=== PATIENT | female | born 1935 ===

== ENCOUNTER → 2017-06-16 | Outpatient (CLI) | payer MEDICARE, OTHER ==
--- NOTE | 2017-06-16 16:20 | RADIOLOGY IMAGING REPORT ---
FACILITY: [facility] [place] PATIENT NAME: Shikha Hester : 1935 MR: [id number] V: [id number] EXAM DATE: ORDERING PHYSICIAN: KYLEE ARTHUR TECHNOLOGIST: Location: [facility] [place] Patient: Shikha Hester : 1935 Visit/Account:[id number] Date of Sevice: 06/16/2017 ABDOMEN/PELVIS W/O CONTRAST HISTORY: Cystitis, hematuria TECHNIQUE: Axial images acquired through the abdomen/pelvis. Coronal and sagittal reformatting also performed. No IV contrast administered. Dose Lowering Technique One of the following dose optimization techniques was utilized in the performance of this exam: Autom ated exposure control; adjustment of the mA and/or kV according to the patient's size; or use of an i terative reconstruction technique. Specific details can be referenced in the facility's radiology C T exam operational policy. COMPARISON: October 01, 2015 and January 16, 2013 FINDINGS: Visualized lung bases: There is an 8 x 5 mm noncalcified nodule lateral aspect right lower lobe best seen on image one of series 2 this is partially seen on the prior CT from January 16, 2013. . The previously noted 5 x 4 mm noncalcified nodule in the left lower lobe appears stable There is line ar scarring in the lung bases Hepatobiliary: Postsurgical changes from a cholecystectomy with a small amount of pneumobilia again noted although has partially decreased. Peripheral biliary ductal dilatation and the right and left lobes of the liver appears similar to the prior study Spleen: 1.5 cm hypoattenuating lesion within the medial spleen appears stable Adrenals: Negative. Pancreas: Negative. Kidneys ureters and bladder: There are postsurgical changes from a left nephrectomy. Nonobstructing right renal calculi again seen the largest is in the lower pole measuring 1.5 x 0.9 x 0.9 cm appearin g similar to the prior study. Genitalia: Calcified uterine fibroids again noted GI: Negative. Vessels/spaces/nodes: Moderate vascular calcifications Bones/soft tissues: Moderate spondylotic changes of the lumbar spine again noted. Chronic compressi on deformity of L2 that appears stable. Scattered sclerotic densities also noted throughout the thor acal lumbar spine appear stable. Moderate degenerative changes of both hip joints again noted and la rge sclerotic lesion in the left iliac bone also remains stable Additional findings: None pertinent. IMPRESSION: Post surgical changes from a left nephrectomy Nonobstructing right renal calculi again noted Additional chronic findings as described Report Dictated By: Samantha Haider MD at 06/16/2017 1:40 PM Report E-Signed By: Samantha Haider MD at 06/16/2017 4:17 PM WSN:[email or web address]
== END ==
LOC: CT 07:17
DX: R91.8 Other nonspecific abnormal finding of lung field (principal); Z90.49 Acquired absence of other specified parts of digestive tract; D73.89 Other diseases of spleen; Z90.5 Acquired absence of kidney; N20.0 Calculus of kidney; D25.9 Leiomyoma of uterus, unspecified; M47.896 Other spondylosis, lumbar region
CPT/HCPCS: 74176

== ENCOUNTER → 2017-07-08 | Outpatient (CLI) | payer MEDICARE, OTHER ==
--- NOTE | 2017-07-09 08:41 | RADIOLOGY IMAGING REPORT ---
[place] [facility] [place] GUERLINE DONNELLY : [id number] MR: [id number] V: [id number] EXAM DATE: [id number] ORDERING PHYSICIAN: CASSY ABURTO TECHNOLOGIST: Grace Bentley PROCEDURE:BILATERAL DIGITAL SCREENING MAMMOGRAM WITH CAD ASSISTED INTERPRETATION & 3D TOMOSYNTHESIS COMPARISON:None. By history the patient's previous mammograms are greater than 15 yrs old & are not Obtainable. INDICATIONS:screening FINDINGS: Moderately heterogeneous fibroglandular tissue is seen throughout the breasts. There are coarse benign appearing calcifications noted bilaterally. There is no evidence of malignant appearing mass, malignant appearing calcification or other secondary sign of malignancy in either breast. DIAGNOSTIC CATEGORY 2--BENIGN FINDING. RECOMMENDATIONS: ROUTINE MAMMOGRAM AND CLINICAL EVALUATION. IMPRESSION: BIRADS 2: Benign finding. No significant abnormality is seen. Dictated by: Samantha Haider M.D. on 07/08/2017 at 16:51 Transcribed by: DALJIT on 07/09/2017 at 7:09 Approved by: Samantha Haider M.D. on 07/09/2017 at 8:40 [facility]
== END ==
LOC: MAMO 01:00
PROVIDERS: ATTEND Physician Assistant
DX: Z12.31 Encounter for screening mammogram for malignant neoplasm of breast (principal); R92.1 Mammographic calcification found on diagnostic imaging of breast
CPT/HCPCS: 77063; 77067

== ENCOUNTER 2018-10-11 14:45 | Emergency (ER) | payer MEDICARE, OTHER ==
--- NOTE | 2018-10-11 14:58 | ER Report ---
History and Physical Time Seen By MD: 14:55 HPI/ROS CHIEF COMPLAINT: Gen. malaise, bradycardia HISTORY OF PRESENT ILLNESS: Patient is an 83-year-old female here with complaints of general malaise since Wednesday at which time she applied her pulse oximeter and found that she was bradycardic in the 30s. Patient was evaluated by PCP and was found to be in sinus bradycardia with a rate of 34 which was confirmed upon arrival in the emergency department. Patient was transported via EMS. Patient currently admits to shortness breath, denies chest pain, fevers or chills, abdominal pain. REVIEW OF SYSTEMS: Constitutional: No fever, no chills. Eyes: No discharge. ENT: No sore throat. Cardiovascular: No chest pain, no palpitations.+ Slow heart rate Respiratory: No cough, + shortness of breath. Gastrointestinal: No abdominal pain, no vomiting. Genitourinary: No hematuria. Musculoskeletal: No back pain. Skin: No rashes. Neurological: No headache. Allergies: Coded Allergies: No Known Drug Allergies (Unverified , 10/11/18) Home Meds No Active Prescriptions or Reported Meds Hx Smoking: Yes Exposure to Second Hand Smoke?: No Hx Substance Use Disorder: No Hx Alcohol Use: No Constitutional Vital Sign - Last 24 Hours 10/11/18 10/11/18 14:52 15:02 Temp 98.2 Pulse 40 Resp 12 B/P (MAP) 178/71 Pulse Ox 89 O2 Delivery Room Air O2 Flow Rate 1.0 Physical Exam General Appearance: The patient is alert, has no immediate need for airway protection and no signs of toxicity. No acute distress Eyes: Pupils equal and round no pallor or injection. ENT, Mouth: Mucous membranes are moist. Respiratory: There are no retractions, lungs are clear to auscultation. Cardiovascular: Sinus bradycardia Gastrointestinal: Abdomen is soft and non tender, no masses, bowel sounds normal. Neurological: Alert and oriented, no cranial nerve defects, neurovascularly intact Skin: Warm and dry, no rashes. Musculoskeletal: Neck is supple non tender. Extremities are nontender, nonswollen and have full range of motion. DIFFERENTIAL DIAGNOSIS: After history and physical exam differential diagnosis was considered for chest pain including but not limited to myocardial ischemia, pericarditis pulmonary embolus, chest wall pain, pleural inflammation and pulmonary infectious causes. Medical Decision Making Data Points Result Diagram: 10/11/18 1450 10/11/18 1450 Laboratory Hematology Test 10/11/18 14:50 White Blood Count 5.8 k/uL (4.5-11.0) Red Blood Count 4.33 M/uL (4.17-5.56) Hemoglobin 13.9 g/dL (12.0-16.0) Hematocrit 41.1 % (34.0-47.0) Mean Corpuscular Volume 94.9 fL (80.0-96.0) Mean Corpuscular Hemoglobin 32.2 pg (26.0-33.0) Mean Corpuscular Hemoglobin Concent 33.9 g/dL (32.0-36.0) Red Cell Distribution Width 14.9 % (11.5-14.5) H Platelet Count 127 K/uL (150-450) L Mean Platelet Volume 10.2 fL (7.2-11.1) Neutrophils (%) (Auto) 73.3 % (39.4-72.5) H Lymphocytes (%) (Auto) 19.0 % (17.6-49.6) Monocytes (%) (Auto) 6.6 % (4.1-12.4) Eosinophils (%) (Auto) 0.4 % (0.4-6.7) Basophils (%) (Auto) 0.7 % (0.3-1.4) Nucleated RBC Relative Count (auto) 0.1 /100WBC Neutrophils # (Auto) 4.3 K/uL (2.0-7.4) Lymphocytes # (Auto) 1.1 K/uL (1.3-3.6) L Monocytes # (Auto) 0.4 K/uL (0.3-1.0) Eosinophils # (Auto) 0.0 K/uL (0.0-0.5) Basophils # (Auto) 0.0 K/uL (0.0-0.1) Nucleated RBC Absolute Count (auto) 0.01 K/uL Chemistry Test 10/11/18 14:50 Sodium Level 141 mmol/L (137-145) Potassium Level 4.0 mmol/L (3.5-5.0) Chloride Level 104 mmol/L (98-107) Carbon Dioxide Level 26 mmol/L (22-31) Blood Urea Nitrogen 24 mg/dl (7-18) Creatinine 1.00 mg/dl (0.52-1.04) Glomerular Filtration Rate Calc 52.8 Random Glucose 93 mg/dl (75-110) Calcium Level 9.7 mg/dl (8.4-10.2) Magnesium Level 2.3 mg/dl (1.7-2.2) Total Bilirubin 0.6 mg/dl (0.2-1.3) Aspartate Amino Transf (AST/SGOT) 160 U/L (0-35) Alanine Aminotransferase (ALT/SGPT) 180 U/L (0-56) Alkaline Phosphatase 103 U/L (0-126) Troponin I < 0.012 ng/ml B-Type Natriuretic Peptide 393 pg/ml (0-100) Total Protein 7.2 g/dl (6.3-8.2) Albumin 4.5 g/dl (3.5-5.0) Lipase 289 U/L (23-300) Coagulation Test 10/11/18 14:50 Prothrombin Time 13.0 seconds (12.0-14.4) Prothromb Time International Ratio 0.98 Activated Partial Thromboplast Time 27 seconds (23-35) EKG/Imaging EKG Interpretation PATIENT NAME: SHIKHA DONNELLY : [id number] MR: [id number] V: [id number] EXAM DATE: ORDERING PHYSICIAN: IVIS GREEN TECHNOLOGIST: Test Reason : Blood Pressure : / mmHG Vent. Rate : 039 BPM Atrial Rate : 039 BPM P-R Int : 230 ms QRS Dur : 136 ms QT Int : 650 ms P-R-T Axes : 064 087 058 degrees QTc Int : 523 ms Marked sinus bradycardia with 1st degree AV block Right bundle branch block Abnormal ECG No previous ECGs available Referred By: Confirmed By: Imaging PATIENT NAME: Shikha Donnelly : 1935 MR: [id number] V: [id number] EXAM DATE: ORDERING PHYSICIAN: IVIS GREEN TECHNOLOGIST: Location: [facility] [place] Patient: Shikha Donnelly : 1935 Visit/Account:[id number] Date of Sevice: 10/11/2018 CT CHEST W/O CONTRAST History: 83-year-old female with chest pain. Technique: Thin axial CT images were obtained through the chest without the injection of intravenous contrast. Coronal and sagittal reformations were then created. One of the following dose optimization techniques was utilized in the performanc e of this exam: Automated exposure control; adjustment of the mA and/or kV according to the patient's size; or use of an iterative reconstruction technique. Specific details can be referenced in the facility's radiology CT exam operational policy. Comparison:None Findings: Lower neck: No lymphadenopathy in the lower neck. Thyroid gland/mediastinum/hilum/lymph nodes: In the left lobe of the thyroid gland inferiorly there is a 2.1 cm dominant nodule. Ultrasound could be performed for further evaluation. Heart and pericardium: The heart size is mildly enlarged. There is calcificatio n of the aortic valve. There is significant three-vessel coronary calcification. Enlargement of the intrahepatic IVC and hepatic veins is suggestive chronic congestive heart failure. Lungs/pleura: In the right lower lobe involving basal segment there is a 8 mm nodule that is partially calcified and likely benign. In a lateral basal segment of the left lower lobe there is millimeter nodule. Its etiology is uncertain. There is linear type density in the right upper lobe involving the anterior segment. In the posterior segment of the right upper lobe there is a small peripheral 5 mm nodule. There is linear scarring in the right middle lobe and lingula. There is no endobronchial lesion. There are areas of lucency in the upper lobes bilaterally suggesting central lobar and paraseptal emphysema. There is no infiltrate or pleural effusion. Bones/soft tissues:Negative Upper abdomen: Air in the biliary system involves mainly the dependent portion. This likely represents change from prior sphincteroplasty or sphincterotomy. Correlation past medical history is recommended. The gallbladder is not seen. On this noncontrast study no masses are noted in the upper abdomen. The left kidney may be surgically absent. A low-density lesion in the spleen is difficult to characterize. IMPRESSION: 1. There are scattered pulmonary nodules in the lungs bilaterally. The largest nodule in the right side is calcified which suggest prior granulomatous disease. The other nodules are difficult to completely characterize. Fleischner society follow-up guidelines are stated below. 2. In the thyroid gland there is a 2.1 cm dominant nodule. Ultrasound could be performed for further evaluation. 3. Findings suggestive chronic congestive heart failure. 4. Status post cholecystectomy. Air in the dependent portion of the biliary system suggesting prior ampulla Vater instrumentation. 5. Findings suggestive central lobar emphysema. FLEISCHNER SOCIETY FOLLOW-UP GUIDELINES FOR NEWLY DETECTED INCIDENTAL NODULES IN PERSONS 35 YEARS OF AGE OR OLDER. If nodule size is 6-8 mm: * Low risk patient ? CT at 3-6 months, then consider CT at 18-24 months if no change. * High risk patient ? CT at 3-6 months, then CT at 18-24 months if no change. LOW RISK PATIENT: Minimal or absent history of tobacco use and of other known risk factors. HIGH RISK PATIENT: Tobacco use, family history of lung cancer, upper pulmonary lobe location of nodule, presence of emphysema, pulmonary fibrosis, older age. Report Dictated By: Noel Noel MD at 10/11/2018 4:22 PM Report E-Signed By: Noel Noel MD at 10/11/2018 4:33 PM WSN:[email or web address] ED Course/Re-evaluation ED Course Patient is an 83-year-old female here with complaints of a slow heart rate, shortness breath since Wednesday. Patient was evaluated at PCP office and sent in for further evaluation. Patient denies prior history of coronary artery disease, arrhythmias. She does not take any medications currently aside from vitamins. Patient does report that in the past she had a history of supraventricular tachycardias, the last of which was approximately 40 years ago. Patient is not c urrently followed by cardiology. Denies prior history of myocardial infarction, cardiac catheterization. CT imaging of the chest was completed and showed scattered nodules likely secondary to recent pneumonia. I discussed the patient with with cardiology at [facility]. Recommended transfer for admission and for evaluation for possible need for pacemaker placement. Patient will be transferred with atropine when necessary. I discussed the patient with the hospitalist that [facility] Dr. ROSAS who accepted the patient. Patient was stable at time of transfer. Decision to Disposition Date: Oct 11, 2018 Decision to Disposition Time: 17:50 Depart Departure Latest Vital Signs Vital Signs Date Time Temp Pulse Resp B/P (MAP) Pulse Ox O2 Delivery O2 Flow Rate FiO2 10/11/18 15:02 1.0 10/11/18 14:52 98.2 40 12 178/71 89 Room Air Impression: Primary Impression: Symptomatic bradycardia Condition: Condition Unchanged Disposition: XFER TO [facility] ([facility]) Referrals: CASSY ABURTO PA-C (PCP) New Scripts No Active Prescriptions or Reported Meds IVIS GREEN DO Oct 11, 2018 14:58
[2018-10-11 15:23] LABS: INR 0.98
--- NOTE | 2018-10-11 15:27 | EKG ---
FACILITY: [facility] PATIENT NAME: GUERLINE DONNELLY : [id number] MR: [id number] V: [id number] EXAM DATE: ORDERING PHYSICIAN: IVIS GREEN TECHNOLOGIST: Test Reason : Blood Pressure : / mmHG Vent. Rate : 039 BPM Atrial Rate : 039 BPM P-R Int : 230 ms QRS Dur : 136 ms QT Int : 650 ms P-R-T Axes : 064 087 058 degrees QTc Int : 523 ms Marked sinus bradycardia with 1st degree AV block and 2nd degree (Mobitz II) AV block with 2:1 conduc tion Right bundle branch block Abnormal ECG No previous ECGs available Confirmed by Pilo Paula ([id number]) on 10/11/2018 8:45:21 PM Referred By: Confirmed By:Pilo Wilson
--- NOTE | 2018-10-11 15:30 | RADIOLOGY IMAGING REPORT ---
FACILITY: [facility] [place] PATIENT NAME: Shikha Hester : 1935 MR: [id number] V: [id number] EXAM DATE: ORDERING PHYSICIAN: IVIS GREEN TECHNOLOGIST: Location: [facility] Patient: Shikha Hester : 1935 Visit/Account:[id number] Date of Sevice: 10/11/2018 2 VIEWS CHEST INDICATION: Bradycardia and chest pain COMPARISON: None available FINDINGS: Cardiomediastinal silhouette: Heart size within normal limits. Prominent apical epicardial fat pad. Lungs: There is no focal infiltrate or lobar consolidation. Soft tissue nodule overlies the left si xth rib without convincing lateral correlate There is no pneumothorax or pleural effusion. Bones and soft tissues: Degenerative changes of the thoracic spine IMPRESSION: 1. Possible lung nodule in the left upper lobe, consider CT. Report Dictated By: Juan Foster MD at 10/11/2018 3:21 PM Report E-Signed By: Juan Foster MD at 10/11/2018 3:22 PM WSN:[email or web address]
[2018-10-11 15:33] LABS: PLATELET COUNT, AUTOMATED 127 K/uL (150-450)
--- NOTE | 2018-10-11 16:40 | RADIOLOGY IMAGING REPORT ---
FACILITY: [facility] PATIENT NAME: Shikha Hester : 1935 MR: [id number] V: [id number] EXAM DATE: ORDERING PHYSICIAN: IVIS GREEN TECHNOLOGIST: [place] [facility] [place]: Shikha Hester : 1935 Visit/Account:[id number] Date of Sevice: 10/11/2018 CT CHEST W/O CONTRAST History: 83-year-old female with chest pain. Technique: Thin axial CT images were obtained through the chest without the injection of intravenous contrast. Coronal and sagittal reformations were then created. One of the following dose optimization techniques was utilized in the performance of this exam: Autom ated exposure control; adjustment of the mA and/or kV according to the patient's size; or use of an i terative reconstruction technique. Specific details can be referenced in the facility's radiology C T exam operational policy. Comparison:None Findings: Lower neck: No lymphadenopathy in the lower neck. Thyroid gland/mediastinum/hilum/lymph nodes: In the left lobe of the thyroid gland inferiorly there i s a 2.1 cm dominant nodule. Ultrasound could be performed for further evaluation. Heart and pericardium: The heart size is mildly enlarged. There is calcification of the aortic valve . There is significant three-vessel coronary calcification. Enlargement of the intrahepatic IVC and hepatic veins is suggestive chronic congestive heart failure. Lungs/pleura: In the right lower lobe involving basal segment there is a 8 mm nodule that is partiall y calcified and likely benign. In a lateral basal segment of the left lower lobe there is millimeter nodule. Its etiology is uncertain. There is linear type density in the right upper lobe involving the anterior segment. In the posterior segment of the right upper lobe there is a small peripheral 5 mm nodule. There is linear scarring in the right middle lobe and lingula. There is no endobronchial lesion. There are areas of lucency in the upper lobes bilaterally suggesting central lobar and paraseptal emp hysema. There is no infiltrate or pleural effusion. Bones/soft tissues:Negative Upper abdomen: Air in the biliary system involves mainly the dependent portion. This likely represen ts change from prior sphincteroplasty or sphincterotomy. Correlation past medical history is recomme nded. The gallbladder is not seen. On this noncontrast study no masses are noted in the upper abdom en. The left kidney may be surgically absent. A low-density lesion in the spleen is difficult to ch aracterize. IMPRESSION: 1. There are scattered pulmonary nodules in the lungs bilaterally. The largest nodule in the right side is calcified which suggest prior granulomatous disease. The other nodules are difficult to comp letely characterize. Fleischner society follow-up guidelines are stated below. 2. In the thyroid gland there is a 2.1 cm dominant nodule. Ultrasound could be performed for furthe r evaluation. 3. Findings suggestive chronic congestive heart failure. 4. Status post cholecystectomy. Air in the dependent portion of the biliary system suggesting prior ampulla Vater instrumentation. 5. Findings suggestive central lobar emphysema. FLEISCHNER SOCIETY FOLLOW-UP GUIDELINES FOR NEWLY DETECTED INCIDENTAL NODULES IN PERSONS 35 YEARS OF AGE OR OLDER. If nodule size is 6-8 mm: * Low risk patient ? CT at 3-6 months, then consider CT at 18-24 months if no change. * High risk patient ? CT at 3-6 months, then CT at 18-24 months if no change. LOW RISK PATIENT: Minimal or absent history of tobacco use and of other known risk factors. HIGH RISK PATIENT: Tobacco use, family history of lung cancer, upper pulmonary lobe location of nodul e, presence of emphysema, pulmonary fibrosis, older age. Report Dictated By: Noel Noel MD at 10/11/2018 4:22 PM Report E-Signed By: Noel Noel MD at 10/11/2018 4:33 PM WSN:[email or web address]
[2018-10-11 19:00] VITALS: BP 145/116
== END 2018-10-11 19:30 | disposition short-term general hospital (02) ==
LOC: ER 15:04
DX: R00.1 Bradycardia, unspecified (principal); R53.81 Other malaise; R06.02 Shortness of breath; I25.10 Atherosclerotic heart disease of native coronary artery without angina pectoris; Z87.891 Personal history of nicotine dependence
CPT/HCPCS: 71046; 71250; 82040; 82247; 82310; 82374; 82435; 82565; 82947; 83690; 83735; 83880; 84075; 84132; 84155; 84295; 84450; 84460; 84484; 84520; 85025; 85610; 85730; 93005; 99284

== ENCOUNTER → 2018-10-11 | Outpatient (CLI) | payer MEDICARE, OTHER | LOC: AMB 14:32 | PROVIDERS: ATTEND Nurse Practitioner | DX: R00.1 Bradycardia, unspecified (principal); R53.1 Weakness | CPT/HCPCS: A0425; A0427 ==

== ENCOUNTER → 2018-10-11 | Outpatient (CLI) | payer MEDICARE, OTHER | LOC: AMB 19:08 | PROVIDERS: ATTEND Nurse Practitioner | DX: I44.2 Atrioventricular block, complete (principal) | CPT/HCPCS: A0425; A0426 ==